=== PATIENT | female | born 2005 | race Caucasian/White ===

== ENCOUNTER → 2023-11-02 | Outpatient (CLI) | payer OTHER ==
[~2023-11-02] MED LIST: GASTROGRAFIN SOLUTION 30ML ONE; ISOVUE-370 76% 100ML VIAL ONE
== END ==
LOC: M PLAIMG 07:26
PROVIDERS: ATTEND Student in an Organized Health Care Education/Training Program
DX: R61 Generalized hyperhidrosis (principal); R59.9 Enlarged lymph nodes, unspecified
CPT/HCPCS: 70491; 71260; 74177; Q9963; Q9967

== ENCOUNTER → 2023-11-07 | Outpatient (CLI) | payer OTHER | LOC: EDUNIT# 11:30 → M CARPUL 11:46 | PROVIDERS: ATTEND Student in an Organized Health Care Education/Training Program | DX: R61 Generalized hyperhidrosis (principal) ==